=== PATIENT | male | born 1990 | race Caucasian/White ===

== ENCOUNTER 2021-10-06 19:36 | Outpatient (REF) | payer OTHER, SELFPAY ==
[2021-10-06 20:31] LABS: Abs Immature Grans 0.02 10^3/uL (0.0-0.06); Absolute Basophil Count 0.05 10^3/uL (0.0-0.2); Absolute Eosinophil Count 0.03 10^3/uL (0.0-0.7); Absolute Lymphocyte Count 1.94 10^3/uL (1.2-3.4); Absolute Monocyte Count 0.36 10^3/uL (0.1-0.8); Basophils % 0.6; Eosinophils % 0.4; Immature Grans % 0.2; Lymphocytes % 23.7; MCHC 33.3 % (32.0-36.0); MPV 11.5 fL (8.0-11.0); Monocytes % 4.4; Neutrophils % 70.7; Nucleated RBC 0 %; Platelet Count 215 10^3/uL (130-400); RBC 5.52 10^6/uL (4.36-5.78); RDW 11.9 % (11.8-14.1); RDW-SD 38.1 fL
== END 2021-10-06 19:37 | disposition home or self-care (01) ==
LOC: LBN 19:36
PROVIDERS: Visit Provider Physician Assistant Medical
DX: R10.9 Unspecified abdominal pain (principal)
CPT/HCPCS: 80053; 83690; 85025

== ENCOUNTER 2021-10-13 07:56 | Outpatient (CLI) | payer OTHER, SELFPAY ==
[2021-10-13 11:11] LABS: ALT 26 U/L (16-63); AST 15 U/L (15-37); Albumin 4.2 g/dL (3.4-5.0); Alkaline Phosphatase 60 U/L (46-116); Anion Gap 7.2 mmol/L (3-11); BUN 16 mg/dL (7-18); Bilirubin, Total 0.6 mg/dL (0.2-1.0); CO2 29.8 mmol/L (21.0-32.0); Calcium 9.2 mg/dL (8.5-10.1); Chloride 105 mmol/L (98-107); Glucose 94 mg/dL (74-106); Lipase 161 U/L (73-393); Potassium 4.1 mmol/L (3.5-5.1); Sodium 142 mmol/L (136-145)
== END 2021-10-13 07:57 | disposition home or self-care (01) ==
LOC: LBO 07:57
PROVIDERS: PCP Nurse Practitioner; Visit Provider Physician Assistant Medical
DX: R10.9 Unspecified abdominal pain (principal)
CPT/HCPCS: 36415; 80053; 83690

== ENCOUNTER 2024-05-17 01:45 | Outpatient (CLI) | payer BC, SELFPAY ==
[2024-05-17 09:16] LABS: Calculated LDL 135 mg/dL (<100); Cholesterol 206 mg/dL (<200); HDL Cholesterol 45 mg/dL (40-60); Triglyceride 134 mg/dL (<150)
[2024-05-19 12:55] LABS: HIV-1/2 Ag & Ab Screen Negative (Negative)
[2024-05-20 13:24] LABS: Hepatitis C Ab w Rflx HCV PCR Negative (Negative)
[2024-05-20 14:29] LABS: IgA 262 mg/dL (85-499); Interpretation (See Note); Tissue Transglutaminase IgA <4.0 CU (<20.0)
== END 2024-05-17 01:46 | disposition home or self-care (01) ==
LOC: LBO 01:45
PROVIDERS: PCP Nurse Practitioner; Referring Provider Nurse Practitioner; Visit Provider Nurse Practitioner
DX: Z13.220 Encounter for screening for lipoid disorders (principal); Z11.59 Encounter for screening for other viral diseases; R19.5 Other fecal abnormalities
CPT/HCPCS: 36415; 80061; 82784; 83516; 86803; 87389

== ENCOUNTER 2025-06-20 01:10 | Outpatient (CLI) | payer BC, SELFPAY ==
[2025-06-20 15:34] LABS: Anion Gap 9.2 mmol/L (3-11); BUN 17 mg/dL (7-18); CO2 26.8 mmol/L (21.0-32.0); Calcium 9.4 mg/dL (8.5-10.1); Calculated LDL 134 mg/dL (<100); Chloride 105 mmol/L (98-107); Cholesterol 201 mg/dL (<200); Estimated GFR 89.78 (mL/min/1.73m2); Glucose 94 mg/dL (74-106); HDL Cholesterol 38 mg/dL (>or=40); Potassium 3.6 mmol/L (3.5-5.1); Sodium 141 mmol/L (136-145); Triglyceride 147 mg/dL (<150)
== END 2025-06-20 01:11 | disposition home or self-care (01) ==
LOC: LBO 01:10
PROVIDERS: PCP Nurse Practitioner; Referring Provider Family Medicine; Visit Provider Family Medicine
DX: Z13.9 Encounter for screening, unspecified (principal); R53.83 Other fatigue
CPT/HCPCS: 36415; 80048; 80061